=== PATIENT | female | born 1945 | race Caucasian/White ===

== ENCOUNTER 2016-11-20 06:48 | Emergency (ER) | payer MEDICARE, OTHER ==
[~2016-11-20] VITALS: Ht 160 cm; Wt 145.4 kg
[~2016-11-20 06:48] MED LIST: ASPIRIN; BENA40TA60 PO; ESCI10TA PO; HYDR12.55 PO; MELO15TA14 PO; NEBI2.5T2 PO; VENTOLIN
--- NOTE | 2016-11-20 07:01 | ED.REPORT ---
HPI-Hip/Pelvis Prob/Inj Date of Service Nov 20, 2016 ED Provider: Dr. Rodriguez The pt is a 71 y/o female with a hx of DM, HTN, and bilateral hip and bilateral knee replacement who presents to the ED via EMS complaining of worsening right hip pain, onset a week. The pt fell about a month and a half ago and was starting to feel better until recently. She associates her sx with being more active this week. She also complains of right knee swelling. She denies rash on the right hip. Nursing Notes Stated Complaint: HIP/LEG PAIN Nursing Notes Reviewed: Yes Allergies: Coded Allergies: Penicillins (Verified Allergy, Unknown, 11/20/16) iodine (Verified Allergy, Unknown, 11/20/16) Scheduled ([Aspirin]) 81 MG DAILY Benazepril-Expunged Drug, Do Not Renew! (Lotensin-Expunged Drug, Do Not Renew!) 40 Mg Tablet 40 MG PO DAILY Escitalopram-Expunged Drug, Do Not Renew! (Lexapro-Expunged Drug, Do Not Renew! ) 10 Mg Tablet 10 MG PO DAILY Hydrochlorothiazide-Expunged, Do Not Renew! (Hydrochlorothiazide-Expunged, Do Not Renew!) 12.5 Mg Tablet 12.5 MG PO DAILY Meloxicam-Expunged Drug, Do Not Renew! (Mobic-Expunged Drug, Do Not Renew!) 15 Mg Tablet 15 MG PO DAILY Nebivolol-Expunged Drug, Do Not Renew! (Nebivolol-Expunged Drug, Do Not Renew!) 2.5 Mg Tablet 5 MG PO DAILY Scheduled PRN ([Ventolin]) PRN PRN PRN Cyclobenzaprine (Cyclobenzaprine) 5 Mg Tablet 5 MG PO TID PRN PRN Spasm General Time Seen by Provider: 07:08 Chief Complaint Hip pain right Hx Obtained From: Patient Arrived By: Ambulance Onset Occurred: 1 week ago Symptom Duration: Since onset Location: Hip, R lateral aspect Quality: Painful Radiation: Does not radiate Severity: Current: Mild Severity: Maximum: Moderate Recent Healthcare: No recent doctor visit Past Medical History Past Medical History Reports: Diabetes mellitus, Hypertension Past Surgical History Bilateral hip replacement Bilateral knee replacement Smoking History Unknown if Ever Smoker Social History Other Social History: Ambulatory Status Independent Review of Systems Musculoskeletal: Reports: Joint pain (right hip ), Joint swelling (right knee) Skin: Denies Rash Complete sys rev & neg: except as marked. Physical Exam Initial Vital Signs Vital Signs (First) Date Time Temp Pulse Resp B/P Pulse Ox O2 Delivery O2 Flow Rate FiO2 11/20/16 07:03 36.8 73 20 155/71 98 Room Air Initial VS: Reviewed Head / Eyes: Atraumatic, Normocephalic Neck: Supple, Non-tender, Full range of motion Respiratory: No respiratory distress Abdomen / GI: No guarding, No distention Upper Extremities: Vascular intact, Neuro intact, No swelling, No tenderness Skin: Warm, Dry, No cyanosis Neurologic: Alert, Oriented, Nonfocal Lower Extremity / Pelvis / MS: Atraumatic, Full range of motion (without pain) , No erythema, No deformity, Neurologic intact, Vascular intact No bony crepitus of hip or knee. General/Constitutional: Awake, Alert, Cooperative Ambulates with mildly antalgic gait. Cardiovascular: Pulses = bilaterally No lower extremity edema Re-Eval/Medical Decision Med Decision/Clinical Course Afebrile, no focal signs of infection clinically, full range of motion of the knee and hip, neurovascularly intact, able to ambulate with a steady gait. She also has no lumbar pain or radicular symptoms. Unlikely that this represents a septic joint, gouty arthritis, an acute fracture, dislocation, or other emergent pathology. Patient ambulated to the restroom and stated that her hip pain worsened when bending down to wipe herself, however continued to maintain a steady gait with full range of motion. Cyclobenzaprine is given as this is most likely musculoskeletal. Return and follow-up precautions given as well. Re-Evaluation/Progress : Time of Eval: 07:40 Re-Evaluation/Progress Note: Rechecked pt. Discussed diagnosis and plan to discharge. Pt understands and agrees with the plan. F/U instruction and RTER warning given. All questions addressed. Counseled Regarding: Diagnosis, Need for follow-up, When/why to return to ED Discharge & Departure Impression: Primary Impression: Right hip pain Disposition: Home Discharge Condition All VS Reviewed: Yes Condition: Stable Additional Instructions: Your pain is most likely due to an overuse injury. There is no obvious sign of infection, dislocation or fracture to your hip or knee. Take cyclobenzaprine as needed for discomfort. Call your orthopedist in the morning for a follow-up appointment. Return to the ER as needed for worsening symptoms. Referrals: OTHER,PHYSICIAN (PCP) Mynor Vergara MD Attestation Portions of this note were transcribed by Lalo Hickman. I,, personally performed the history,physical exam and medical decision-making;I reviewed and confirmed the accuracy of the information in the transcribed note. Signed by Caro Topete. 11/20/16 copies to: Mynor Vergara MD, Timothy S DO Nov 20, 2016 07:01 Lalo Hickman Nov 20, 2016 07:17
[2016-11-20 07:03] VITALS: BP 155/71; PULSE 73; RESP 20; O2SAT 98
[2016-11-20] MEDS ORDERED: CYCL5TAB PO (07:30)
== END 2016-11-20 07:55 | disposition home or self-care (01) ==
LOC: EDBD 06:48 → EDUNIT# 06:48 → SED 06:48
DX: M25.551 Pain in right hip (principal); R22.2 Localized swelling, mass and lump, trunk; W01.0XXA Fall on same level from slipping, tripping and stumbling without subsequent striking against object, initial encounter; Y93.89 Activity, other specified; Y99.8 Other external cause status; Y92.9 Unspecified place or not applicable; E11.9 Type 2 diabetes mellitus without complications; I10 Essential (primary) hypertension; J45.909 Unspecified asthma, uncomplicated; Z96.643 Presence of artificial hip joint, bilateral; Z96.653 Presence of artificial knee joint, bilateral; Z79.82 Long term (current) use of aspirin; Z88.0 Allergy status to penicillin; Z88.8 Allergy status to other drugs, medicaments and biological substances

== ENCOUNTER 2016-11-30 12:35 | Emergency (ER) | payer MEDICARE, OTHER ==
[~2016-11-30] VITALS: Ht 160 cm; Wt 136.4 kg
[~2016-11-30 12:35] MED LIST changes: +CYCL5TAB PO
[2016-11-30 13:22] VITALS: BP 108/75; PULSE 62; RESP 16; O2SAT 95
--- NOTE | 2016-11-30 14:43 | ED.REPORT ---
HPI-Hip/Pelvis Prob/Inj Date of Service Nov 30, 2016 ED Provider: Brandi Nolasco History of Present Illness: right hip pain, was xrayed at [facility] [address] pedro in [place]. Saw him last week, was provided tramadol suman in [facility] did the hip replacement 15 years ago. Need something for the pain Last A1c is 6.7. Appointment with ortho in March 05 Patient reports a hx of having increased activity right before the pain started. Reports the pain is in the muscle on the right lateral thigh. Nursing Notes Stated Complaint: PAIN IN RIGHT HIP Chief Complaint: Extremity Trauma Nursing Notes Reviewed: Yes Allergies: Coded Allergies: Penicillins (Verified Allergy, Unknown, 11/30/16) iodine (Verified Allergy, Unknown, 11/30/16) tramadol (Verified Allergy, Unknown, Nausea, 11/30/16) Scheduled ([Aspirin]) 81 MG DAILY Benazepril-Expunged Drug, Do Not Renew! (Lotensin-Expunged Drug, Do Not Renew!) 40 Mg Tablet 40 MG PO DAILY Escitalopram-Expunged Drug, Do Not Renew! (Lexapro-Expunged Drug, Do Not Renew! ) 10 Mg Tablet 10 MG PO DAILY Hydrochlorothiazide-Expunged, Do Not Renew! (Hydrochlorothiazide-Expunged, Do Not Renew!) 12.5 Mg Tablet 12.5 MG PO DAILY Meloxicam-Expunged Drug, Do Not Renew! (Mobic-Expunged Drug, Do Not Renew!) 15 Mg Tablet 15 MG PO DAILY Nebivolol-Expunged Drug, Do Not Renew! (Nebivolol-Expunged Drug, Do Not Renew!) 2.5 Mg Tablet 5 MG PO DAILY Scheduled PRN ([Ventolin]) PRN PRN PRN Cyclobenzaprine (Cyclobenzaprine) 5 Mg Tablet 5 MG PO TID PRN PRN Spasm General Time Seen by Provider: 14:42 Chief Complaint Thigh injury right Hx Obtained From: Patient Symptom Duration: Since onset Past Medical History Past Medical History Reports: Diabetes mellitus, Hypertension Past Surgical History Bilateral hip replacement Bilateral knee replacement Smoking History Unknown if Ever Smoker Social History Alcohol Use: Denies alcohol use Drug Use: Denies drug use Other Social History: Ambulatory Status Independent Review of Systems Basic Review of Systems Eyes: Vision NL, No discharge Respiratory: No shortness of breath, No cough, No wheeze GI: No abdominal pain, No anorexia, No nausea, No vomiting Endocrine: No cold intolerance, No heat intolerance, No weight loss Psychiatric: Normal thought content Physical Exam Initial Vital Signs Vital Signs (First) Date Time Temp Pulse Resp B/P Pulse Ox O2 Delivery O2 Flow Rate FiO2 11/30/16 13:22 37.1 62 16 108/75 95 Room Air Initial VS: Reviewed, Vital signs normal General/Constitutional: Well-developed, Well-nourished Head / Eyes: Atraumatic, Normocephalic, PERRL ENT: Mucous membranes moist, Conjunctiva normal, No scleral icterus Neck: Supple, Non-tender, Full range of motion Respiratory: Breath sounds normal, Clear to auscultation, No respiratory distress Cardiovascular: Regular rate & rhythm, Heart sounds normal, Intact distal pulses Abdomen / GI: Soft, Non-tender, No guarding, No rebound, No distention Back: No CVA tenderness Lymphatic: No lymphadenopathy Upper Extremities: Vascular intact, Neuro intact, No swelling, No tenderness Skin: Warm, Dry, No cyanosis Neurologic: Alert, Oriented, Nonfocal Psychiatric: Mood/affect normal, Behavior normal, Normal thought content Right Thigh: Positive: Tenderness present... (Moderate) patient with tenderness to touch on right lateral thigh. No sign of any rash or erthyma. General/Constitutional: Awake, Alert, No acute distress Head / Eyes: Atraumatic, Normocephalic, PERRL, EOMI Respiratory / Chest: Atraumatic, Breath sounds NL, Breath sounds = bilat, No respiratory distress Cardiovascular: Heart rate NL, Regular rhythm, Heart sounds NL, No gallop Re-Eval/Medical Decision Med Decision/Clinical Course 71 year old female with right lateral leg pain. Patient has been seen by primary care and recently in the ER here. X-rays have been read as negative, labs last week were negative. Discussed options for patient longer course of opiates VS steroids. Patient desires course of steroids. No sign of septic arthertis or gout. Discharge & Departure Impression: Primary Impression: Leg pain, lateral Laterality: right Qualified Code: M79.604 - Pain in right leg Disposition: Home Patient Instructions: Muscle Strain (ED) Additional Instructions: This does appear to be in the muscle. Start prednisone 60 mg daily for 5 days then 50 mg daily for 5 days, then 40 mg daily for 5 days then 30 mg daily for 5 days then 20 mg daily for 5 days then 10 mg daily for 5 days then 5 mg daily for 5 days. Take omeprazole 20 mg daily while taking prednisone. Also reglan 10 mg up to 3 times a day may be a better choice than zofran for the nausea. You can also use hydrocodone 1 up to 2 times a day as needed for severe pain. Please follow with your primary care provider next week. If you are not seeing improvement in 5 days, return to the ER. I am sorry you are in so much discomfort. Referrals: Mynor Vergara MD (PCP) EDSupervising Provider for APC: Juan Rodriguez DO copies to: Mynor Vergara MD, Sue ARNP Nov 30, 2016 14:42
[2016-11-30] MEDS ORDERED: predniSONE 20 mg Tablet PO ONE (15:10)
[2016-11-30 15:29] VITALS: BP 148/59; PULSE 67; RESP 20; O2SAT 94
== END 2016-11-30 15:29 | disposition home or self-care (01) ==
LOC: SED 12:35
DX: M79.604 Pain in right leg (principal); M25.551 Pain in right hip; I10 Essential (primary) hypertension; E11.9 Type 2 diabetes mellitus without complications; Z96.643 Presence of artificial hip joint, bilateral; Z79.82 Long term (current) use of aspirin; Z88.0 Allergy status to penicillin; Z88.5 Allergy status to narcotic agent; Z88.8 Allergy status to other drugs, medicaments and biological substances

== ENCOUNTER 2016-12-10 21:33 | Emergency (ER) | payer MEDICARE, OTHER ==
[~2016-12-10] VITALS: Ht 157.5 cm; Wt 136.4 kg
[2016-12-10 21:46] VITALS: BP 187/67; PULSE 87; O2SAT 94
[2016-12-10 22:19] LABS: BASOPHILS % (AUTO) 0.1 % (0-3); EOSINOPHILS % (AUTO) 0.3 % (0-5); MONOCYTES % (AUTO) 6.9 % (4-12); Mean Corpuscular Hemoglobin 26.5 pg (27.0-35.0); Mean Corpuscular Volume 84.1 fL (81-100); NEUTROPHILS % (AUTO) 84.6 % (40-74); Platelet Count 244 bil/L (150-400)
--- NOTE | 2016-12-10 22:27 | ED.REPORT ---
HPI-Fever Date of Service Dec 10, 2016 ED Provider: Evie Robert MD Pt is a 71 year old female with a hx of DM, HTN, bilateral hip replacements and chronic hip pain presenting to the ED complaining of a fever (102) onset 4 hours ago. She reports that she is currently on 40 mg of Prednisone, down from 60. Associated symptoms include increased urinary frequency, body aches, headache, looser stools. She states that she has been unable to bend down, and has a really hard time sitting down, especially on the toilet so she is concerned that she may have a UTI due to not being able to wipe well. Denies dysuria, cough, congestion, vomiting, diarrhea, numbness or weakness. Nursing Notes Stated Complaint: FEVER Chief Complaint: General Complaint Nursing Notes Reviewed: Yes Allergies: Coded Allergies: Penicillins (Verified Allergy, Unknown, 11/30/16) iodine (Verified Allergy, Unknown, 11/30/16) tramadol (Verified Allergy, Unknown, Nausea, 11/30/16) Scheduled ([Aspirin]) 81 MG DAILY Benazepril-Expunged Drug, Do Not Renew! (Lotensin-Expunged Drug, Do Not Renew!) 40 Mg Tablet 40 MG PO DAILY Escitalopram-Expunged Drug, Do Not Renew! (Lexapro-Expunged Drug, Do Not Renew! ) 10 Mg Tablet 10 MG PO DAILY Hydrochlorothiazide-Expunged, Do Not Renew! (Hydrochlorothiazide-Expunged, Do Not Renew!) 12.5 Mg Tablet 12.5 MG PO DAILY Meloxicam-Expunged Drug, Do Not Renew! (Mobic-Expunged Drug, Do Not Renew!) 15 Mg Tablet 15 MG PO DAILY Nebivolol-Expunged Drug, Do Not Renew! (Nebivolol-Expunged Drug, Do Not Renew!) 2.5 Mg Tablet 5 MG PO DAILY Sulfamethoxazole/Trimeth 800-160 mg (Bactrim DS 800-160 mg) 1 Each Tablet 1 TABLET PO BID Scheduled PRN ([Ventolin]) PRN PRN PRN Cyclobenzaprine (Cyclobenzaprine) 5 Mg Tablet 5 MG PO TID PRN PRN Spasm General Time Seen by MD: 22:24 Chief Complaint Fever currently Hx Obtained From: Patient Arrived By: Walk-in Onset Occurred: 1 - 4 hours ago Symptom Duration: Since onset Location: : Left lower extremity: Right lower extremity Quality: Painful Severity: Current: Severe Severity: Maximum: Severe Recent Healthcare: Recent doctor visit, Previous surgery Similar Sx Previous: No Past Medical History Past Medical History Reports: Diabetes mellitus, Hypertension Past Surgical History Bilateral hip replacement Bilateral knee replacement Smoking History Unknown if Ever Smoker Social History Alcohol Use: Denies alcohol use Drug Use: Denies drug use Other Social History: Ambulatory Status Independent Review of Systems Reports looser stools, body aches Constitutional: Reports: Fever (102) Ears / Nose / Throat: Denies: Nasal congestion Respiratory: Denies: Non-productive cough GI: Denies: Diarrhea, Vomiting Female: Denies: Dysuria, Urinary frequency Neurologic: Reports: Headache, Denies: Numbness, Weakness Complete sys rev & neg: except as marked. Physical Exam Initial Vital Signs Vital Signs (First) Date Time Temp Pulse Resp B/P Pulse Ox O2 Delivery O2 Flow Rate FiO2 12/10/16 21:46 38.0 87 187/67 94 Room Air Initial VS: Reviewed Head / Eyes: Atraumatic, Normocephalic, PERRL ENT: Mucous membranes moist, Conjunctiva normal, No scleral icterus Abdomen / GI: Soft, Non-tender, No guarding, No rebound, No distention Extremities: Vascular intact, Neuro intact, No swelling, No tenderness Psychiatric: Mood/affect normal, Behavior normal, Normal thought content General/Constitutional: Awake, Alert Appearance / Presentation: Positive: Obese Neck: Atraumatic, Supple, No meningismus, Full range of motion Respiratory / Chest: Breath sounds NL, Breath sounds = bilat, No respiratory distress, No rales, No rhonchi, No wheezing, No retractions, No stridor Cardiovascular: Heart rate NL, Regular rhythm, Heart sounds NL, No murmurs, Peripheral circulation NL Skin: Atraumatic, Color NL, No rash Neurologic: Oriented X3, Speech NL, No motor deficits, No sensory deficits, CN II - XII intact, Cerebellar NL, Memory NL Interpretation & Diagnostics Lab Results Interpretation Result Diagram: 12/10/16 2210 12/10/16 221 Test 12/10/16 22:10 12/11/16 00:01 12/11/16 00:03 White Blood Count 15.0th/mm3 (3.8-10.1) Red Blood Count 4.65mil/mm3 (3.90-5.20) Hemoglobin 12.3g/dL (12.0-15.6) Hematocrit 39.1% (35.0-46.0) Mean Corpuscular Volume 84.1fL (81-100) Mean Corpuscular Hemoglobin 26.5pg (27.0-35.0) Mean Corpuscular Hemoglobin Concent 31.5% (32.0-37.0) Red Cell Distribution Width 15.4% (12.3-15.4) Platelet Count 244bil/L (150-400) Neutrophils (%) (Auto) 84.6% (40-74) Lymphocytes (%) (Auto) 7.6% (14-46) Monocytes (%) (Auto) 6.9% (4-12) Eosinophils (%) (Auto) 0.3% (0-5) Basophils (%) (Auto) 0.1% (0-3) Sodium Level 135mEq/L (134-144) Potassium Level 4.0mEq/L (3.5-5.2) Chloride Level 96mEq/L (97-108) Carbon Dioxide Level 23mmol/L (18-29) Blood Urea Nitrogen 21mg/dL (8-27) Creatinine 0.91mg/dL (0.57-1.00) Estimat Glomerular Filtration Rate 87mL/min (>59) Glucose Level 158mg/dL (60-99) Lactic Acid Level 0.2mmol/L (0.4-2.0) Calcium Level 8.7mg/dL (8.5-10.1) Total Bilirubin 0.2mg/dL (0.0-1.2) Aspartate Amino Transf (AST/SGOT) 13U/L (0-50) Alanine Aminotransferase (ALT/SGPT) 25U/L (0-32) Alkaline Phosphatase 72U/L (25-165) Total Protein 6.6g/dL (6.4-8.4) Albumin 3.5g/dL (3.4-5.0) Urine Color Yellow (YELLOW) Urine Appearance Clear (CLEAR,HAZY) Urine pH 6.0 (5.0-8.0) Urine Specific [place] 1.029 (1.003-1.035) Urine Protein Negativemg/dL (NEG,TRACE) Urine Glucose (UA) Negativemg/dL (NEGATIVE) Urine Ketones Negativemg/dL (NEGATIVE) Urine Occult Blood Trace (NEGATIVE) Urine Nitrite Negative (NEGATIVE) Urine Bilirubin Negative (NEGATIVE) Urine Urobilinogen Normalmg/dL (NORMAL) Urine Leukocyte Esterase Negative (NEGATIVE) Urine RBC 0-2/hpf (0-2) Urine WBC 0-5/hpf (0-5) Urine Epithelial Cells Few/hpf (NONE-MOD) Urine Crystals None seen (NONE SEEN) Urine Bacteria Few/hpf (NONE-FEW) Urine Hyaline Casts None/lpf (NONE) Urine Granular Casts None seen (NONE SEEN) Urine Waxy Casts None seen (NONE SEEN) Urine Red Blood Cell Casts None seen (NONE SEEN) Urine White Blood Cell Casts None seen (NONE SEEN) Urine Mucus Present (None Seen) Urine Trichomonas None seen (NONE SEEN) Urine Yeast None (NONE SEEN) Urinalysis Comment None Urine Culture Reflexed Not indicated Hold You Top Tube Received (Received) X-Ray Chest Interpretation Interpretation / Wet Read by: Wet read ED physician NL X-Ray Chest Findings: No infiltrate Re-Eval/Medical Decision Med Decision/Clinical Course 71-year-old female presents the emergency department with fever. Patient has had some back pain however it is improving and proceeded the fever by quite some time, I do not suspect discitis or osteomyelitis. Patient is on prednisone currently which would be masking some of her symptoms of infection. She does report some urinary frequency as well as difficulty with her bathroom hygiene due to her back pain. She has straight cath for urine which had no epithelial cells and minimal white blood cells and no leukocyte esterase, however it does have a few bacteria in it and this combined with her symptoms and the possibility that prednisone may be masking her immune response I treated her with antibiotics. She will follow up with her primary care doctor on Monday. She understands return precautions for any localizing signs and symptoms and will return to the emergency department for recheck if anything develops. I did a full skin exam reveals no signs of cellulitis. She did not have any upper respiratory symptoms, a chest x-ray was performed and did not reveal any infiltrate. Re-Evaluation/Progress : Time of Eval: 23:51 Patient Status: Condition improved Re-Evaluation/Progress Note: Reviewed laboratory results Counseled Regarding: Diagnosis, Lab results, Need for follow-up, When/why to return to ED Discharge & Departure Impression: Primary Impression: Fever Additional Impression: UTI (urinary tract infection) Disposition: Home Discharge Condition All VS Reviewed: Yes Condition: Improved Patient Instructions: Fever in Adults (ED) Additional Instructions: It may be that her symptoms are being caused by urinary tract infection. Take your antibiotics for this. He may continue to take Tylenol 650 mg every 6 hours for your fevers. Return to the emergency department if you develop worsening symptoms including headahce, nausea and vomiting, feelings as though you might pass out, worsening pain, weakness, numbness. Referrals: Mynor Vergara MD (PCP) Scribe Attestation Portions of this note were transcribed by Franca Washington. I, Dr. Robert personally performed the history, physical exam and medical decision-making; I reviewed and confirmed the accuracy of the information in the transcribed note. Signed by: Caro Ruff, 12/10/2016. copies to: Mynor Vergara MD, Sarah C MD Dec 10, 2016 22:27 FRANCA WASHINGTON Dec 10, 2016 22:54
[2016-12-10] MEDS ORDERED: 0.9% Sodium Chloride 1,000 ML IV ONE (22:50)
[2016-12-10 23:28] VITALS: BP 162/74; PULSE 83; O2SAT 94
[2016-12-11 00:26] LABS: APPEARANCE,URINE CLEAR (CLEAR,HAZY); COLOR,URINE YELLOW (YELLOW); OCCULT BLOOD,URINE TRACE (NEGATIVE); UROBILINOGEN,URINE NORMAL (NORMAL)
[2016-12-11] MEDS ORDERED: SULF1TAB35 PO (01:17)
[2016-12-11 01:54] VITALS: BP 154/72; PULSE 78; RESP 18; O2SAT 92
--- NOTE | 2016-12-11 07:33 | DRSVH ---
PROCEDURE: X-RAY CHEST ONE VIEW, PORTABLE ([id number]) INDICATIONS: fever TECHNIQUE: One view of the chest was acquired. COMPARISON: None. FINDINGS: Surgical changes and devices: None. Lungs and pleura: No pleural effusions or pneumothorax. Lungs are clear. Mediastinum: Mediastinal contours appear normal. Heart size is normal. Bones and chest wall: No suspicious bony lesions. Overlying soft tissues appear unremarkable. IMPRESSION: No acute process. Dictated by: Candace Eugene M.D. on 12/11/2016 at 7:32 Approved by: Candace Eugene M.D. on 12/11/2016 at 7:32
== END 2016-12-11 01:55 | disposition home or self-care (01) ==
LOC: SED 21:33 → EDBD 21:33 → SED 12-11 01:55
DX: R50.9 Fever, unspecified (principal); N39.0 Urinary tract infection, site not specified; R19.7 Diarrhea, unspecified; R51 Headache; M79.1 Myalgia; I10 Essential (primary) hypertension; E11.9 Type 2 diabetes mellitus without complications; Z96.643 Presence of artificial hip joint, bilateral; Z79.82 Long term (current) use of aspirin; Z88.0 Allergy status to penicillin; Z88.5 Allergy status to narcotic agent; Z88.8 Allergy status to other drugs, medicaments and biological substances
CPT/HCPCS: 36415; 71010; 80053; 81000; 83605; 85025; 87086; 96360; 99284; J7030